=== PATIENT | female | born 1975 | race Caucasian/White ===

== ENCOUNTER 2019-03-04 20:35 | Emergency (ER) | payer OTHER ==
--- OUTSIDE RECORDS SUMMARY | 2019-03-04 20:53 | XMS REPORT | Summary of Care ---
:1975 Author Organization [facility] Address [address] [facility] [place] [address] Care Team Providers Name Role Phone None, [place] Primary Care Provider Unavailable Reason for Visit Reason Comments Follow-up 3 Month Visit Chronic Kidney Disease Stage IV Hypertension Anemia Encounter Details Date Type Department Care Team Description 02/04/2019 Office Visit [facility] Mai Milton MD Stage 3 chronic kidney [address] [place] disease (HCC) (Primary [place] [id number] [place] [address] Dx) [phone] Allergies Active Allergy Reactions Severity Noted Date Comments Celexa GI Reaction 09/24/2013 LFT elevation Duloxetine Hcl Other 05/13/2013 LFT elevation Lisinopril Other 02/04/2019 Renal function decreased Nsaids Other 01/05/2019 Patient has a kidney disorder documented as of this encounter (statuses as of 02/04/2019) Medications Medication Sig Dispensed Refills Start Date End Date Status Multiple Vitamin (MULTI Take 1 Tab by 0 Active VITAMIN DAILY) Oral Tab mouth DAILY. ferrous sulfate 325 (65 Take 1 Tab by 90 Tab 5 07/05/2016 Active FE) MG Oral Tab mouth THREE TIMES DAILY. tramadol (ULTRAM) 50 MG Take 1 Tab by 90 Tab 0 10/05/2018 Active Oral TabIndications: mouth EVERY EIGHT Status post lumbar and HOURS NEEDED lumbosacral fusion by (back pain). Max anterior technique Daily Amount: 150 mg. ALPRAZolam (XANAX) 1 MG Take 1 Tab by 120 Tab 0 10/05/2018 Active Oral TabIndications: mouth FOUR TIMES Anxiety state, Status DAILY NEEDED post lumbar and (prn). Max Daily lumbosacral fusion by Amount: 4 mg. anterior technique MDD=4 tabs Additional information Patient taking differently: 1 mg Oral TID PRN, prn, MDD=4 tabs, Reported on 01/04/2019 8:23 AM cholecalciferol (VITAMIN D) 25 Take 1 Tab by mouth 60 Tab 2 02/04/2019 Active MCG (1000 UT) Oral Tab DAILY. documented as of this encounter (statuses as of 02/04/2019) Active Problems Problem Noted Date Chronic renal insufficiency 06/12/2015 Medullary cystic kidney 06/12/2015 Status post lumbar and lumbosacral fusion by anterior technique 06/09/2015 Family history of other kidney diseases 12/10/2007 Anxiety state 05/28/2004 documented as of this encounter (statuses as of 02/04/2019) Resolved Problems Problem Noted Date Resolved Date Other and unspecified noninfectious gastroenteritis and 02/05/2007 08/09/2011 colitis(558.9) Nausea alone 02/05/2007 08/09/2011 Diarrhea 02/05/2007 08/09/2011 Dizziness and giddiness 02/05/2007 01/08/2016 Herniated nucleus pulposus 01/30/2007 01/08/2016 Lumbago 05/28/2004 01/08/2016 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 01/08/2016 documented as of this encounter (statuses as of 02/04/2019) Immunizations Name Administration Dates Next Due Influenza (IM) Preservative Free 02/14/2013 Influenza (IM) W/Pres 12/13/2016, 12/09/2014 documented as of this encounter Social History Tobacco Use Types Packs/Day Years Used Date Former Smoker Cigarettes 0.5 6 Quit: 03/13/2004 Smokeless Tobacco: Never Used Alcohol Use Drinks/Week oz/Week Comments No 0 Standard drinks or equivalent 0.0 Sex Assigned at Date Recorded Not on file Job Start Date Occupation Industry Not on file Not on file Not on file Travel History Travel Start Travel End No recent travel history available. documented as of this encounter Last Filed Vital Signs Vital Sign Reading Time Taken Comments Blood Pressure 138/98 02/04/2019 2:08 PM EST Pulse - - Temperature - - Respiratory Rate - - Oxygen Saturation - - Inhaled Oxygen Concentration - - Weight 83.5 kg (184 lb) 02/04/2019 2:08 PM EST Height 170.2 cm (5' 7") 02/04/2019 2:08 PM EST Body Mass Index 28.82 02/04/2019 2:08 PM EST documented in this encounter Patient Instructions Patient InstructionsMai Milton MD - 02/04/2019 2:00 PM ESTYour kidney function is bit worse Please continue to keep yourself hydrated. Drink at least 1.5 -2 L water. Less salt in diet Avoid food high in potassium such as bananas, nuts, orange juice, grape fruit juice, chocolates, melons, honeydews, tomatoes products- as juices, sauces, potatoes (unless you soak raw potatoes overnight and change its water at least 3x before use Please start vit D 1000 units daily. Please check your BP at home. We want it around 120-140/70-90. If it is more than 150/90 consistently, please call us. Please check your BP 1 week before appointment and make a log of it. Avoid pain killers like Motrin or Aleve or Naprosyn or Ibuprofen or Advil. You can take Tylenol We will see you back in 6-8 weeks Please get your blood work done 2-3 days before you come for next visit OR come 1 hour early and get you blood work here in hospital documented in this encounter Progress Notes Mai Milton MD - 02/04/2019 2:00 PM EST Patient Name: Gracy Nino Date of : 1975 Date of Service: 02/04/2019 I had the pleasure of seeing Gracy Nino, a 43-y.o. Female with history of medullary cystic kidney disease, chronic kidney disease stage III, anxiety disorder who presents for follow up. she was last seen in the [facility]rology [facility] in October 2018. Miss Perales was earlier following with [facility]. She [facility] her physician from [facility] got retired. As per the patient, she has very strong history of kidney disease. Her mother and grandmother had kidney disease and was on dialysis. They both got kidney transplant. No recurrence of disease in the kidney transplant. She was also having some kidney issues. She underwent kidney biopsy in 2013 which shows medullary cystic kidney disease. Biopsy report showed cystic dialation of the cortical medullary tubules consistent with autosomal dominant medullary cystic disease . She underwent genetic testing for Uromodulin DNA sequence to be evaluated for Uromodulin associated kidney disease( UAKD). This testing was normal. HPI: Since I last saw Gracy Nino, she is doing okay. Patient denies any symptoms at this time. No sob or chest pain.Normal bowel habits. No urinary symptoms. No hesitancy/urgency. Normal appetite and energy level. Blood pressure is high in office, 138/98. She does not have any history of hypertension. She is noton any medications. Weight is stable. She is not on any diuretics. No recent NSAIDs use. Renal function is worsened.. Serum creatinine is 2.7< 2.2< 2 <1.9 < 2.1<1.6 <1.4. Baseline is around 1.4-1.6. Most recent estimated GFR is 19 No proteinuria. Patient Active Problem List Diagnosis Anxiety state Family history of other kidney diseases Status post lumbar and lumbosacral fusion by anterior technique Chronic renal insufficiency Medullary cystic kidney Physical Examination: Blood pressure (!) 138/98, height 5' 7" (1.702 m), weight 184 lb (83.5 kg), not currently . Gen:Pleasant in NAD. HEENT: Pupils equal, EOMI, anicteric sclerae, moist oral mucosa CVS: RRR, no rub, no gallop Lungs: Clear to auscultation bilaterally Abd: Soft non tender non distended Ext: No cyanosis. No edema Neuro: Awake, alert, oriented x 3. Normal gait. Skin: No rash on the visible skin Renal sonogram 2018. The right kidney measures 10.2 cm sagittally. Its cortex is well-maintained. There is no hydronephrosis. Again there is somewhat increased echogenicity within and this has been described previously as medullary sponge kidney. No obvious calculus is appreciated. There is vascularity with seen with the right kidney. The left kidney measures 10.2 cm in length. The upper pole is somewhat obscured by artifact. The visualized cortex maintained. There is no hydronephrosis. Some increase in echogenicity with the renal pyramids also seen with the left kidney. There is vascularity noted with the left kidney. 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 No hydronephrosis or obvious calcification. Renal sonogram 2016. The right kidney is of normal size measuring 10.5 cm sagittally. There is no cortical loss. There is no hydronephrosis or discrete calculus. There is some hyperechoic appearance to the renal pyramids and this can be consistent with the history of medullary sponge disease. The left kidney measures 10.1 cm sagittally. The upper pole is slightly obscured by artifact. The visualized cortex maintained. Renal pyramids are somewhat prominent. No franklin hydronephrosis, mass or discrete calculus seen. IMPRESSION IMPRESSION: Findings with the kidneys particularly on the right can be consistent with medullary sponge kidney as the history indicates. Urgency: Routine. This is a routine medical imaging report. Renal biopsy dated 28 October 2013 Diagnosis cystic dilatation of corticomedullary tubules, consistent with autosomal dominant medullary cystic disease Do not have the report of the biopsy Assessment: Gracy Nino is a 40-y.o. Female with CKD and hx of medullary cystic kidney disease. She has family history of kidney disease-mother and grandmother underwent kidney transplant. Plan: (1) CKD G3b A1: -Miss Nino has chronic renal disease due to medullary cystic kidney disease. -She underwent kidney biopsy in 2013 which shows medullary cystic kidney disease. Biopsy report showed cystic dialation of the cortical medullary tubules consistent with autosomal dominant medullary cystic disease . She underwent genetic testing for Uromodulin DNA sequence to be evaluated for Uromodulin associated kidney disease( UAKD). This testing was normal. -Reviewed the renal ultrasound in February 2018. Consistent with medullary sponge kidney.. -24 hour urine calcium reviewed. Surprisingly, 24-hour urine calcium is undetectable. Endocrinology on board but no new recommendations. -Renal function is worsened. Serum creatinine is 2.7 <2.2<2 <1.9 < 2.1< 1.6 <1.4. Baseline was 1.4-1.6 but new baseline is around 2... -I think, patient has progression of renal disease. -No discussion about dialysis yet. We will have more discussion in the next visit if renal functiondoes not improve. . Avoid nephrotoxic medications. (2) HTN: Blood pressure is high in office, 138/98. She does not have any history of hypertension. She is not on any medications -We will continue to monitor. May start low-dose hydrochlorothiazide versus amlodipine if needed (3) CKD BMD: Calcium is 8.7< 9 <9.3 <9.1<8.8. PTH is 258 <128 &lt ;100<99. Phosphorus is 3.7. He is starting vitamin D 1000 units daily. (4) Anemia Hemoglobin is low and dropping to 9.8. Iron stores okay. Patient is already on ferrous sulfate. -Patient has anemia of chronic kidney disease. -We are going to start patient on Aranesp. . Return to clinic in 8 WEEKS This visit lasted 45 minutes, and more than 50% of the physician/patient and or family encounter wasspent with counseling and coordination of care. In my specialty, this includes review of pertinent medical information with the patient, discussion of the differential diagnosis, and patient education about various treatment options. Please do not hesitate to call me with any questions or concerns. Sincerely, Author: Mai Milton MD Note created: 02/04/2019 at: 14:50 documented in this encounter Plan of Treatment Date Type Specialty Care Team Description 04/01/2019 Office Visit Nephrology Mai Milton MD [address] [place] [address] 04/09/2019 Office Visit Endocrinology Marika Camacho CRNP [address] [facility] [place] [address] Name Type Priority Associated Diagnoses Order Schedule RENAL FUNCTION PANEL Lab Routine Stage 3 chronic kidney Expected: 2018 disease (HCC) (Approximate), Expires: 08/03/2019 CBC WITH DIFFERENTIAL Lab Routine Stage 3 chronic kidney Expected: 2018 disease (HCC) (Approximate), Expires: 08/03/2019 VITAMIN D 25 HYDROXY Lab Routine Stage 3 chronic kidney Expected: 2018 ([facility]) disease (HCC) (Approximate), Expires: 08/03/2019 INTACT PTH Lab Routine Stage 3 chronic kidney Expected: 02/04/2019 disease (HCC) (Approximate), Expires: 08/03/2019 MICROALBUMIN, RANDOM URINE Lab Routine Stage 3 chronic kidney Expected: , W/ CREATININE disease (HCC) Expires: 08/03/2019 Health Maintenance Due Date Last Done Comments LIPID DISORDER SCREENING 06/21/2018 06/21/2013, 12/12/2011, 05/18/2011, Additional history exists INFLUENZA VACCINE (#1) 2018 12/13/2016, 12/09/2014, 02/14/2013 MAMMOGRAM (SCREENING) 12/27/2018 12/27/2017, 12/26/2016, 07/16/2015, Additional history exists DEPRESSION SCREENING 06/22/2019 06/21/2018, 12/02/2014 Medication Use Agreement 07/06/2019 07/05/2018 PNEUMOCOCCAL 0-64 YRS (1 of 11/08/2019 Postponed from 3 - PCV13) 02/21/1980 (Other) PAP SMEAR 12/27/2019 12/26/2016, 06/23/2015 (Postponed), 05/18/2011 (Postponed), Additional history exists DIABETES SCREENING 02/02/2020 02/01/2019, 10/22/2018, 06/28/2018, Additional history exists HPV IMMUNIZATION SERIES Aged Out No longer eligible based on patient's age to complete this topic MENINGOCOCCAL VACCINE IMM Aged Out No longer eligible based on patient's age to complete this topic documented as of this encounter Results Not on filedocumented in this encounter Visit Diagnoses Diagnosis Stage 3 chronic kidney disease (HCC) - Primary documented in this encounter Guarantor Name Account Type Relation to Date of Phone Billing Patient Address Gracy Nino Personal/Family 1975 [phone] [address] [phone] [place], [place] (Work) [id number] documented as of this encounter
--- OUTSIDE RECORDS SUMMARY | 2019-03-04 20:53 | XMS REPORT | Summary of Care ---
:1975 Author Organization [facility] Address 1 [facility] [place] [address] Care Team Providers Name Role Phone None, [place] Primary Care Provider Unavailable Reason for Visit Reason Comments New Patient Hyperparathyroidism Refer to Department Only (Routine) Status Reason Specialty Diagnoses / Referred By Referred To Procedures Contact Contact Closed ENDOCRINOLOGY / Diagnoses Hyperparathyroidism (HCC) Mai Milton Guthrie Endocrinology MD Endocrinology-Ar 1 [facility] [place] [address] [address] [facility] Phone: Street [phone] [place] [address] Fax: Encounter Details Date Type Department Care Team Description 01/04/2019 Office Visit Mali Camacho, Hyperparathyroidism (HCC) ( Primary Dx); Endocrinology-JAUN Junior Medullary cystic kidney; ond 105 [place] Chronic renal impairment, stage 4 (severe) (HCC) [address] [facility] [place] [address] [place] [id number] Allergies Active Allergy Reactions Severity Noted Date Comments Celexa GI Reaction 09/24/2013 LFT elevation Duloxetine Hcl Other 05/13/2013 LFT elevation documented as of this encounter (statuses as of 01/04/2019) Medications Medication Sig Dispensed Refills Start Date [...] MDD=4 tabs, Reported on 01/04/2019 8:23 AM buPROPion XL (WELLBUTRIN XL) 150 Take 1 Tab by mouth 30 Tab 0 11/06/2018 Active MG Oral TABLET SR 24 HR 24 hour DAILY. tabletIndications: Anxiety ALPRAZolam (XANAX) 0.25 MG Oral Take 1 Tab by mouth 14 Tab 0 11/06/2018 Active TabIndications: Anxiety TWO TIMES DAILY NEEDED (anxiety). Max Daily Amount: 0.5 mg. lisinopril (PRINIVIL, ZESTRIL) 10 Take 0.5 Tabs by mouth 30 Tab 5 2018 Active MG Oral Tab DAILY. 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 fusion by anterior technique 06/09/2015 Family history of other kidney diseases 12/10/2007 Anxiety state 05/28/2004 documented as of this encounter (statuses as of 01/04/2019) Resolved Problems Problem Noted Date Resolved Date Other and unspecified noninfectious gastroenteritis and 02/05/2007 08/09/2011 colitis(558.9) Nausea alone 02/05/2007 08/09/2011 Diarrhea 02/05/2007 08/09/2011 Dizziness and giddiness 02/05/2007 01/08/2016 Herniated nucleus pulposus 01/30/2007 01/08/2016 Lumbago 05/28/2004 01/08/2016 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 01/08/2016 documented as of this encounter (statuses as of 01/04/2019) Immunizations Name Administration Dates Next Due Influenza [...] Sign Reading Time Taken Comments Blood Pressure 126/80 01/04/2019 8:20 AM EDT Pulse 82 01/04/2019 8:20 AM EDT Temperature - - Respiratory Rate - - Oxygen Saturation 100% 01/04/2019 8:20 AM EDT Inhaled Oxygen Concentration - - Weight 79.8 kg (175 lb 14.4 oz) 01/04/2019 8:20 AM EDT Height 170.2 cm (5' 7") 01/04/2019 8:20 AM EDT Body Mass Index 27.55 01/04/2019 8:20 AM EDT documented in this encounter Patient Instructions Patient InstructionsMarika Camacho CRNP - 01/04/2019 8:00 AM EDTFasting labs DEXA scan FOLLOW UP 3 mosElectronically signed by Marika Camacho CRNP at 2018 8:53 AM EDT documented in this encounter Progress Notes Marika Camacho CRNP - 01/04/2019 8:00 AM EDT PATIENT: Gracy Nino : 1975 DATE OF SERVICE: 01/04/2019 REFERRING PROVIDER: Mai Milton PRIMARY CARE PROVIDER: None, [place] CHIEF COMPLAINT: Chief Complaint Patient presents with New Patient Hyperparathyroidism HISTORY OF PRESENT ILLNESS: Gracy Nino is a 43-y.o. female referred by Mai Milton who presents for a consultation for hyperparathyroidism. Lab tests reveal serum calcium range of 8 -9 mg/dL, intact parathyroid level of 110s - 120s, serum D level of 40s - 50s. 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 Denies history of kidney stones, fractures, osteoporosis, chronic kidney disease. Current allergies, medications and history have been reviewed. History was obtained from the patient who appears to be reliable. Targeted ROS: Height at age 20: 67" Today's height: 67" Height loss: no Hx of nephrolithiasis or nephrocalcinosis: no Hematuria or flank pain: no Polyuria or polydipsia: no Myalgias or arthralgias: no Hx of low trauma fracture: no Cognitive changes, memory loss or gait disorder: no Abdominal pain or constipation: + constipation Diet: Consumes 2-3 servings of dairy foods a day Supplements: MVI CURRENT MEDICATIONS Current Outpatient Medications: ALPRAZolam (XANAX) 0.25 MG Oral Tab, Take 1 Tab by mouth TWO TIMES DAILY NEEDED (anxiety). Max Daily Amount: 0.5 mg., Disp: 14 Tab, Rfl: 0 ALPRAZolam (XANAX) 1 MG Oral Tab, Take 1 Tab by mouth FOUR TIMES DAILY NEEDED (prn). Max Daily Amount: 4 mg. MDD=4 tabs (Patient taking differently : Take 1 mg by mouth THREE TIMES DAILY NEEDED (prn). MDD=4 tabs), Disp: 120 Tab, Rfl: 0 buPROPion XL (WELLBUTRIN XL) 150 MG Oral TABLET SR 24 HR 24 hour tablet , Take 1 Tab by mouthDAILY., Disp: 30 Tab, Rfl: 0 ferrous sulfate 325 (65 FE) MG Oral Tab, Take 1 Tab by mouth THREE TIMES DAILY., Disp: 90 Tab, Rfl: 5 lisinopril (PRINIVIL, ZESTRIL) 10 MG Oral Tab, Take 0.5 Tabs by mouth DAILY., Disp: 30 Tab, Rfl: 5 Multiple Vitamin (MULTI VITAMIN DAILY) Oral Tab, Take 1 Tab by mouth DAILY., Disp: , Rfl: tramadol (ULTRAM) 50 MG Oral Tab, Take 1 Tab by mouth EVERY EIGHT HOURS NEEDED (back pain). Max Daily Amount: 150 mg., Disp: 90 Tab, Rfl: 0 ALLERGIES Allergies Allergen Reactions Celexa GI Reaction LFT elevation Cymbalta [Duloxetine Hcl] Other LFT elevation PAST MEDICAL HISTORY Past Medical History: Diagnosis Date Anxiety state, unspecified 05/28/2004 Cholelithiasis removed 1998 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 Herniated nucleus pulposus 01/30/2007 Hormonal contraceptive briefly in her teens Lumbago 05/28/2004 Other and unspecified noninfectious gastroenteritis and colitis(558.9) Other and unspecified noninfectious gastroenteritis and colitis(558.9) Premenopausal patient Reflux Sleep disorder Unspecified functional disorder of stomach PAST SURGICAL HISTORY Past Surgical History: Procedure Laterality Date LAPAROSCOPIC CHOLECYSTECTOMY 1998 HI CAMPBELL W/O FACETEC FORAMOT/DSKC 03/14 VRT SEG, THORACIC 2001 LAMINECTOMY L5/S1 HI REMOVAL OF OVARY(S) 02/23 Left ovary - mass - benign SPINAL FUSION NEC 2006 FAMILY HISTORY Family History Problem Relation Age of Onset Heart Mother chf Hypertension Mother Genitourinary () Mother kidney transplant High Cholesterol Father Asthma Father Breast Cancer Paternal Aunt SOCIAL HISTORY Social History Socioeconomic History Marital status: Other Spouse name: Not on file Number of children: Not on file Years of education: Not on file Highest education level: Not on file Occupational History Not on file Social Needs Financial resource strain: Not on file Food insecurity: Worry: Not on file Inability: Not on file Transportation needs: Medical: Not on file Non-medical: Not on file Tobacco Use Smoking status: Former Smoker Packs/day: 0.50 Years: 6.00 Pack years: 3.00 Types: Cigarettes Last attempt to quit: 03/13/2004 Years since quittin.8 Smokeless tobacco: Never Used Substance and Sexual Activity Alcohol use: No Alcohol/week: 0.0 standard drinks Drug use: No Sexual activity: Not Currently Partners: Female Lifestyle Physical activity: Days per week: Not on file Minutes per session: Not on file Stress: Not on file Relationships Social connections: Talks on phone: Not on file Gets together: Not on file Attends jewish service: Not on file Active member of club or organization: Not on file Attends meetings of clubs or organizations: Not on file Relationship status: Not on file Intimate partner violence: Fear of current or ex partner: Not on file Emotionally abused: Not on file Physically abused: Not on file Forced sexual activity: Not on file Other Topics Concern Back Care Yes Bike Helmet No Blood Transfusions No Caffeine Concern No Comment: coffee approx 2 cups daily 1-2 c hot tea daily Exercise Yes Comment: walking Hobby Hazards Yes Comment: rug hooking International Travel No Service No Occupational Exposure No Seat Belt Yes Self-Exams Yes Comment: at times Sleep Concern Yes Comment: flex shift Special Diet No Stress Concern No Weight Concern No Social History Narrative Job: [employer] for [employer]: (0) Not very often (1) Several days (2) More than half the days (3) Nearly every day Over the last 2 weeks, how often have you been bothered by the following problems? 1. Feeling nervous, anxious or on edge ANS- 3 2. Not being able to stop or control worrying ANS- 3 3. Worrying too much about different things ANS- 3 4. Trouble relaxing ANS- 3 5. Being so restless that it is hard to sit still ANS- 2 6. Becoming easily annoyed or irritable ANS- 3 7. Feeling afraid as if something awful might happen ANS- 1 If you checked off any problems, how difficult have these problems made it for you to do your work,take care of things at home, or get along with other people? Very difficult Date 07/22/14 Total Score 18 out of 21 REVIEW OF SYSTEMS: A comprehensive review of systems was negative except for as noted in the history of present illness/subjective. PHYSICAL EXAM: BP 126/80 (BP Location: Left arm, Patient Position: Sitting) Pulse 82 Ht 5' 7 " (1.702 m) Wt 175 lb 14.4 oz (79.8 kg) SpO2 100% BMI 27.55 kg/m2 GENERAL: alert, oriented, no acute distress. SKIN: normal, no rashes or abnormalities noted. EYES: conjunctivae/corneas clear. Pupils equal, round, reactive to light. Equal ocular movements intact. NECK: thyroid: not enlarged, symmetric, no tenderness/mass/nodules. LYMPH: No palpable LAD in the supraclavicular, submandibular, submental, anterior cervical, posterior cervical, supraclavicular, or occipital chains LUNGS: clear to auscultation bilaterally. HEART: regular rhythm, no murmurs, no gallops, no rubs. ABDOMEN: soft, nontender, + BS THORAX: No paraspinal tenderness, no CVA tenderness EXTREMITIES: no clubbing, cyanosis, or edema. NEUROLOGICAL: CN II - XII grossly intact. Nml DTRs B. No tremor with outstretched hands. Gait is normal. Able to walk n tiptoes, heels. Tandem gait nL. Able to squat to stand. LAB RESULTS Office Visit on 10/23/2018 Component Date Value Ref Range Status Urine Creatinine 10/23/2018 31.3 20.0 - 320.0 MG/DL Final Urine Microalbumin 10/23/2018 <0.6 <1.9 mg/dl Final Microalbumin Ratio 10/23/2018 Low Malb or CRE Final ASSESSMENT/PLAN: 1. Hyperparathyroidism, normocalcemic - with known CKD stage 4. Serum calcium in the 9s range, serumD wnL. iPTH elevated in the 120s - 130s. No evidence of renal calculi on recent imaging. elevated PTH likely secondary to CKD. Clinically asymptomatic. Evaluate bone mineral density. Evaluate with labsbelow and make recommendations. - REFER TO ENDOCRINOLOGY - COMPREHENSIVE METABOLIC PANEL; Future - INTACT PTH; Future - IONIZED CALCIUM; Future - MAGNESIUM LEVEL; Future - PHOSPHORUS; Future - VITAMIN D 1,25 DIHYDROXY(REFERENCE LAB); Future - VITAMIN D 25 HYDROXY ([facility]); Future - XR DEXA SCAN 1 OR MORE SITES; Future 2. Medullary cystic kidney - followed by nephrology 3. Chronic renal impairment, stage 4 (severe) ([facility]) - followed by nephrology Patient agrees with plan of care. Follow up 3 mos More than 50% of the physician/patient and or family encounter was spent with counseling and coordination of care. Total visit time involved was 45 minutes. JAUN Baeza 01/04/2019 08:33 Section of Endocrinology documented in this encounter Plan of Treatment Date Type Specialty Care Team Description 01/25/2019 Appointment Radiology 02/04/2019 Office Visit Nephrology Mai Milton MD 1 [place] [address] [phone] 04/09/2019 Office Visit Endocrinology Marika Camacho CRNP 105 [facility] [place] [address] Name Type Priority Associated Diagnoses Order Schedule COMPREHENSIVE METABOLIC Lab Routine Hyperparathyroidism (HCC) Expected: PANEL 01/04/2019 (Approximate), Expires: 07/03/2019 INTACT PTH Lab Routine Hyperparathyroidism (HCC) Expected: 01/04/2019 (Approximate), Expires: 07/03/2019 IONIZED CALCIUM Lab Routine Hyperparathyroidism (HCC) Expected: 01/04/2019 (Approximate), Expires: 07/03/2019 MAGNESIUM LEVEL Lab Routine Hyperparathyroidism (HCC) Expected: 01/04/2019 (Approximate), Expires: 01/04/2020 PHOSPHORUS Lab Routine Hyperparathyroidism (HCC) Expected: 01/04/2019 (Approximate), Expires: 07/03/2019 VITAMIN D 1,25 Lab Routine Hyperparathyroidism (HCC) Expected: DIHYDROXY(REFERENCE LAB) 01/04/2019 (Approximate), Expires: 07/03/2019 VITAMIN D 25 HYDROXY Lab Routine Hyperparathyroidism (HCC) Expected: ([facility]) 01/04/2019 (Approximate), Expires: 07/03/2019 XR DEXA SCAN 1 OR MORE Imaging Routine Hyperparathyroidism (HCC) Expected: SITES 01/04/2019, Expires: 06/22/2021 Health Maintenance Due Date Last Done Comments LIPID DISORDER SCREENING 06/21/2018 06/21/2013, 12/12/2011, 05/18/2011, Additional history exists INFLUENZA VACCINE (#1) 2018 12/13/2016, 12/09/2014, 02/14/2013 MAMMOGRAM (SCREENING) 12/27/2018 12/27/2017, 12/26/2016, 07/16/2015, Additional history exists DEPRESSION SCREENING 06/22/2019 06/21/2018, 12/02/2014 Medication Use Agreement 07/06/2019 07/05/2018 DIABETES SCREENING 10/23/2019 10/22/2018, 06/28/2018, 04/13/2018, Additional history exists PNEUMOCOCCAL 0-64 YRS (1 of 11/08/2019 Postponed from 3 - PCV13) 02/21/1980 (Other) PAP SMEAR 12/27/2019 12/26/2016, 06/23/2015 (Postponed), 05/18/2011 (Postponed), Additional history exists HPV IMMUNIZATION SERIES Aged Out No longer eligible based on patient's age to complete this topic MENINGOCOCCAL VACCINE IMM Aged Out No longer eligible based on patient's age to complete this topic documented as of this encounter Results Not on filedocumented in this encounter Visit Diagnoses Diagnosis Hyperparathyroidism (HCC) - Primary Hyperparathyroidism, unspecified 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 [place] [id number] documented as of this encounter
--- OUTSIDE RECORDS SUMMARY | 2019-03-04 20:53 | XMS REPORT | Summary of Care ---
:1975 Author Organization [facility] Address 1 [facility] [place] [address] Care Team Providers Name Role Phone None, [place] Primary Care Provider Unavailable Reason for Visit Reason Comments Bite x yesterday. Getting better but is red/swollen/painful. pig bite of R 2nd digit finger. Error Encounter Details Date Type Department Care Team Description 01/05/2019 Office Visit [facility] Eva Jimenez, ERRONEOUS [address] [facility] MAINTENANCE REPAIRMAN [place] [address] (Primary Dx) [phone] [place] [address] [phone] Allergies Active Allergy Reactions Severity Noted Date Comments Celexa GI Reaction 09/24/2013 LFT elevation Duloxetine Hcl Other 05/13/2013 LFT elevation Nsaids Other 01/05/2019 Patient has a kidney disorder documented as of this encounter (statuses as of 01/05/2019) Medications Medication Sig Dispensed Refills Start Date [...] on 01/04/2019 8:23 AM buPROPion XL (WELLBUTRIN Take 1 Tab 30 Tab 0 11/06/2018 01/05/2019 Discontinued XL) 150 MG Oral TABLET by mouth (Therapy SR 24 HR 24 hour DAILY. Completed) tabletIndications: Anxiety ALPRAZolam (XANAX) 0.25 Take 1 Tab 14 Tab 0 11/06/2018 01/05/2019 Discontinued (Dose MG Oral TabIndications: by mouth TWO Adjustment) Anxiety TIMES DAILY NEEDED (anxiety). Max Daily Amount: 0.5 mg. lisinopril (PRINIVIL, Take 0.5 30 Tab 5 12/14/2018 01/05/2019 Discontinued ZESTRIL) 10 MG Oral Tab Tabs by (Therapy mouth DAILY. 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/12/2015 Status post lumbar and lumbosacral fusion by anterior technique 06/09/2015 Family history of other kidney diseases 12/10/2007 Anxiety state 05/28/2004 documented as of this encounter (statuses as of 01/05/2019) Resolved Problems Problem Noted Date Resolved Date Other and unspecified noninfectious gastroenteritis and 02/05/2007 08/09/2011 colitis(558.9) Nausea alone 02/05/2007 08/09/2011 Diarrhea 02/05/2007 08/09/2011 Dizziness and giddiness 02/05/2007 01/08/2016 Herniated nucleus pulposus 01/30/2007 01/08/2016 Lumbago 05/28/2004 01/08/2016 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 01/08/2016 documented as of this encounter (statuses as of 01/05/2019) Immunizations Name Administration Dates Next Due Influenza [...] Sign Reading Time Taken Comments Blood Pressure 126/74 01/05/2019 10:53 AM EDT Pulse 83 01/05/2019 10:53 AM EDT Temperature 37.2 01/05/2019 10:53 AM EDT C (98.9 F) Respiratory Rate - - Oxygen Saturation 99% 01/05/2019 10:53 AM EDT Inhaled Oxygen Concentration - - Weight 80.3 kg (177 lb) 01/05/2019 10:53 AM EDT Height - - Body Mass Index 27.72 01/04/2019 8:20 AM EDT documented in this encounter Progress Notes Eva Jimenez NP - 01/05/2019 10:50 AM EDTPig bite last night - puncture wound of the index finger right hand - appears deep - uncertain if possible fracture - encouraged to go to ER for further evaluation. documented in this encounter Plan of Treatment Date Type Specialty Care Team Description 01/25/2019 Appointment Radiology 02/04/2019 Office Visit Nephrology Mai Milton MD 1 [facility] [place] [address] 04/09/2019 Office Visit Endocrinology Marika Camacho CRNP 105 [facility] [place] [address] Health Maintenance Due Date Last Done Comments [...] filedocumented in this encounter Visit Diagnoses Diagnosis ERRONEOUS ENCOUNTER--DISREGARD - Primary documented in this encounter Guarantor Name Account Type Relation to Date of Phone Billing Patient Address ReubenmelonyGracy Personal/Family 1975 [phone] [phone] [place], [place] (Work) [address] documented as of this encounter
--- NOTE | 2019-03-04 21:08 | ED ---
Complex/Multi-Sys Presentation - HPI Summary HPI Summary: Patient is a 44 y/o F w/ Hx of medullary sponge kidney who [facility] accompanied by partner with complaints of SOB, chest tightness, fatigue, nausea , decreased appetite, and dizziness. She states that these Sx onset this evening , 03/04/19, while patient was at dinner. Patient reports that she has been having similar episodes of Sx for the past month, but states that tonight's episode was more severe. Patient denies FARRAR, visual changes, cough, sore throat, fevers, and skin pallor. It is reported that the patient is being followed by a silver solderer at [facility] as well as [facility]. Patient had bloodwork done a month ago, it is reported that the patient had an increase in her creatinine from 2.2 to about 2.7. Her potassium was elevated and Hgb was lowered as well. No additional bloodwork was obtained since last month. Patient is scheduled for appointment at [facility] on March 28 2019. On triage, pain is rated 1/10. Home medications and allergies are reviewed. - History Of Current Complaint Chief Complaint: EDGeneral Hx Obtained From: Patient Onset/Duration: Still Present Timing: Constant Severity Currently: Mild Location: Pain At: - chest Character: Pressure - "tightness" Associated Signs And Symptoms: Positive: Dizziness, SOB, Chest Pain, Nausea, Other - positive - fatigue, decreased appetite; negative -visual changes, sore throat, skin pallor. Negative: Headache, Cough, Fever - Allergies/Home Medications Allergies/Adverse Reactions: Allergies Allergy/AdvReac Type Severity Reaction Status Date / Time citalopram [From Celexa] Allergy See Comment Verified 03/04/19 20:44 duloxetine [From Cymbalta] Allergy See Comment Verified 03/04/19 20:44 NSAIDS (Non-Steroidal Allergy See Comment Verified 03/04/19 20:44 Anti-Inflamma PMH/Surg Hx/FS Hx/Imm Hx History: Reports: Hx Renal Disease Sensory History: Denies: Hx Legally Blind, Hx Deafness Opthamlomology History: Denies: Hx Legally Blind EENT History: Denies: Hx Deafness Infectious Disease History: No Infectious Disease History: Denies: Traveled Outside the [place] in Last 30 Days - Family History Known Family History: Negative: Blood Disorder - Social History Alcohol Use: Occasionally Substance Use Type: Reports: None Smoking Status (MU): Former Smoker Review of Systems Positive: Fatigue. Negative: Fever Eyes: Other - negative - visual changes Negative: Sore Throat Positive: Chest Pain Positive: Shortness Of Breath. Negative: Cough Gastrointestinal: Other - positive - decreased appetite Positive: Nausea Skin: Other - negative - skin pallor Neurological: Other - positive - dizziness Negative: Headache All Other Systems Reviewed And Are Negative: Yes Physical Exam - Summary Physical Exam Summary: Appearance: Well-appearing, Well-nourished, lying in bed comfortably Skin: Warm, dry, no obvious rash Eyes: sclera anicteric, no conjunctival pallor ENT: mucous membranes moist, pharynx appears normal Neck: Supple, nontender Respiratory: Clear to auscultation, no signs of respiratory distress Cardiovascular: Normal S1, S2. No murmurs. Normal distal pulses in tibial and radial bilaterally. Abdomen: Soft, nontender, normal active bowel sounds present Musculoskeletal: Normal, Strength/ROM Intact Neurological: A&Ox3, awake and alert, mentation is normal, speech is fluent and appropriate Psychiatric: affect is normal, does not appear anxious or depressed Triage Information Reviewed: Yes Vital Signs On Initial Exam: Initial Vitals Temp Pulse Resp BP Pulse Ox 97.2 F 68 16 185/113 100 03/04/19 20:37 03/04/19 20:37 03/04/19 20:37 03/04/19 20:37 03/04/19 20:37 Vital Signs Reviewed: Yes Procedures - Sedation Patient Received Moderate/Deep Sedation with Procedure: No Diagnostics - Vital Signs Vital Signs Temp Pulse Resp BP Pulse Ox 03/04/19 20:37 97.2 F 68 16 185/113 100 - Laboratory Result Diagrams: 03/04/19 21:17 03/04/19 21:17 Lab Statement: Any lab studies that have been ordered have been reviewed, and results considered in the medical decision making process. - Radiology CXR Radiology Interpretation Completed By: ED Physician Summary of Radiographic Findings: CXR showed no acute process, pending official report. - EKG 2323 Cardiac Rate: NL - rate of 56 BPM EKG Rhythm: Sinus Bradycardia Summary of EKG Findings: EKG shows sinus bradycardia at 56 BPM, P waves, QRS complex, and T waves are within normal limits, T waves and intervals are normal , no ischemic changes, no STEMI. Re-Evaluation - Re-Evaluation First Eval Re-Evaluation Time: 01:00 Comment: Results of workup were discussed. Patient was discharged to home and will follow up with her silver solderer. She was given Zofran 8 mg SL before discharge. Complex Multi-Symp Course/Dx Course Of Treatment: Patient is a 44 y/o F w/ Hx of medullary sponge kidney who presents to [facility] accompanied by partner with complaints of SOB, chest tightness , fatigue, nausea, decreased appetite, and dizziness. She states that these Sx onset this evening, 03/04/19, while patient was at dinner. Patient reports that she has been having similar episodes of Sx for the past month, but states that tonight's episode was more severe. Patient denies FARRAR, visual changes, cough, sore throat, fevers, and skin pallor. It is reported that the patient is being followed by a silver solderer at [facility] as well as [facility]. Patient had bloodwork done a month ago, it is reported that the patient had an increase in her creatinine from 2.2 to about 2.7. Her potassium was elevated and Hgb was lowered as well. No additional bloodwork was obtained since last month. Patient is scheduled for appointment at [facility] on March 28 2019. Physical exam is unremarkable. EKG shows sinus bradycardia at 56 BPM, P waves, QRS complex, and T waves are within normal limits, T waves and intervals are normal, no ischemic changes, no STEMI. CXR showed no acute process. Bloodwork was obtained and within normal limits with exception of RBC 3.18, Hgb 10.5, Hct 31, MCH 33, sodium 134, carbon dioxide 20, BUN 39, creatinine 3, glucose 118. Results of workup were discussed. Patient was discharged to home and will follow up with her silver solderer. She was given Zofran 8 mg SL before discharge. - Diagnoses Differential Diagnoses/HQI/PQRI: Metabolic Abnormality, Other - Uremia, ACS, hyperkalemia, CHF Provider Diagnoses: Acute dyspnea, CKD (chronic kidney disease) Discharge ED - Sign-Out/Discharge Documenting (check all that apply): Patient Departure - discharge - Discharge Plan Condition: Stable Disposition: HOME Patient Education Materials: Chronic Kidney Disease (ED) Referrals: No Primary Care Phys,NOPCP [Primary Care Provider] - Additional Instructions: Definitely contact your silver solderer in the morning, you should probably be seen soon. Fortunately we did not find any emergent conditions tonight like a heart problem, elevated potassium level, or fluid in the lungs, but your kidney function does seem to be further deteriorating. - Billing Disposition and Condition Condition: STABLE Disposition: Home - Attestation Statements Document Initiated by Horacio: Yes Documenting Scribe: NICOLETTE MORALES Provider For Whom Judyibmaster is Documenting (Include Credential): KAITLYNN DINH MD Scribe Attestation: I, NICOLETTE MORALES, scribed for KAITLYNN DINH MD on 03/09/19 at 0632. Scribe Documentation Reviewed: Yes Provider Attestation: The documentation as recorded by the NICOLETTE akins accurately reflects the service I personally performed and the decisions made by me, KAITLYNN DINH MD Status of Scribe Document: Viewed
[2019-03-04 21:25] LABS: ABS Basophils 0.1 10^3/ul (0-0.2); ABS Eosinophils 0.1 10^3/ul (0-0.6); ABS Monocytes 0.4 10^3/ul (0-0.8); ABS Neutrophils 4.1 10^3/ul (1.5-7.7); Eosinophil % 1.7 %; Hematocrit 31 % (35-47); Hemoglobin 10.5 g/dL (12.0-16.0); Lymphocyte % 18.3 %; Mean Corpuscular HGB Conc 34 g/dL (31-36); Mean Corpuscular Hemoglobin 33 pg (27-31); Mean Corpuscular Volume 97 fL (80-97); Mean Platelet Volume 8.5 fL (7.4-10.4); Platelet Count 299 10^3/uL (150-450); Red Blood Count 3.18 10^6 /uL (3.70-4.87); Red Cell Distribution Width 12 % (10-15); White Blood Count 5.7 10^3/uL (3.5-10.8)
[2019-03-04 21:40] LABS: Albumin 4.2 g/dL (3.2-5.2); Albumin/Globulin Ratio 1.4 (1-3); EGFR African American 20.4 (>60); EGFR Non-African American 16.9 (>60); Globulin 2.9 g/dL (2-4); Total Bilirubin 0.2 mg/dL (0.2-1.0); Total Protein 7.1 g/dL (6.4-8.9)
[2019-03-05] MEDS ORDERED: Ondansetron ODT TAB* 4 MG SL ONE (01:06)
[2019-03-05 01:13] VITALS: BP 143/93
== END 2019-03-05 01:17 | disposition home or self-care (01) ==
LOC: ED 20:35
DX: R06.00 Dyspnea, unspecified (principal); N18.9 Chronic kidney disease, unspecified; Z87.891 Personal history of nicotine dependence; Z88.8 Allergy status to other drugs, medicaments and biological substances
CPT/HCPCS: 36415; 71046; 80053; 84484; 85025; 93005; 99282; A9270-GY